=== PATIENT | male | born 1980 | race African-American/Black ===

== ENCOUNTER 2017-06-04 23:29 | Emergency (ER) | payer OTHER ==
[~2017-06-04] VITALS: Ht 175.3 cm; Wt 81.6 kg
[2017-06-05] MEDS ORDERED: VALIUM5 MG PO (02:21)
[2017-06-05 02:26] VITALS: BP 134/90
== END 2017-06-05 02:30 | disposition home or self-care (01) ==
LOC: EME 23:29
DX: S03.03XA Dislocation of jaw, bilateral, initial encounter (principal); Z88.6 Allergy status to analgesic agent
CPT/HCPCS: 70110; 99281; 99284